=== PATIENT | male | born 1940 | race Caucasian/White ===

== ENCOUNTER 2020-02-24 11:27 | Emergency (ER) | payer OTHER | END 2020-02-24 12:08 | disposition home or self-care (01) | LOC: JVIRT 11:27 | DX: Z03.818 Encounter for observation for suspected exposure to other biological agents ruled out (principal) | CPT/HCPCS: C9803; G2012-GT; U0003 ==

== ENCOUNTER 2020-03-29 15:53 | Emergency (ER) | payer OTHER | END 2020-03-29 16:13 | disposition home or self-care (01) | LOC: JVIRT 15:53 | DX: R07.0 Pain in throat (principal); Z20.828 Contact with and (suspected) exposure to other viral communicable diseases | CPT/HCPCS: C9803; G2012-GT; Q3014-GT; U0003 ==

== ENCOUNTER 2021-04-16 12:30 | Emergency (ER) | payer OTHER ==
[2021-04-16] MEDS ORDERED: IBUPROFEN 400 MG TABLET (FP) PO ONE ×2 (12:52→13:07)
[2021-04-16 13:05] VITALS: BP 137/45; PULSE 58; TEMP 98.7; BMI 20.8
== END 2021-04-16 14:43 | disposition home or self-care (01) ==
LOC: FER 12:30
DX: M25.562 Pain in left knee (principal)
CPT/HCPCS: 73562-TC-LT-FY; 73590-TC-LT-FY; 99283-25

== ENCOUNTER → 2021-04-27 | Day surgery (SDC) | payer OTHER ==
[~2021-04-27] MED LIST: ACETAMINOPHEN 1000 MG/100 ML BAG IVPB ONE; BUPIVACAINE HCL/PF 2.5 MG/ML - 30 ML VIAL IJ ONE; BUPIVACAINE LIPOSOME/PF (EXPAREL) 266 MG/20 ML VIAL ONE; DEXAMETHASONE SOD PHOSPHATE 4 MG/1 ML VIAL ONE; LACTATED RINGERS SOLUTION 1,000 ML IV SCH; MIDAZOLAM HCL 2 MG/2 ML SINGLE DOSE VIAL ONE; ONDANSETRON 4 MG/2 ML VIAL IVPUSH PRN; PROPOFOL 20 ML ONE; ceFAZolin SODIUM 1 GM VIAL ONE; oxyCODONE HCL 5 MG TABLET ONE; oxyCODONE HCL 5 MG TABLET PO PRN
[2021-04-27 11:23] VITALS: BMI 20.8
[2021-04-27 16:26] VITALS: TEMP 98
[2021-04-27 18:22] VITALS: PULSE 54
[2021-04-27 18:24] VITALS: BP 131/57
== END | disposition home or self-care (01) ==
LOC: FASU 10:38
PROVIDERS: ATTEND Orthopaedic Surgery Sports Medicine
PROC: 0LMM0ZZ Reattachment of Left Upper Leg Tendon, Open Approach (ICD-10-PCS; principal; 2021-04-27 13:30)
DX: S76.112A Strain of left quadriceps muscle, fascia and tendon, initial encounter (principal); W19.XXXA Unspecified fall, initial encounter; Y93.9 Activity, unspecified; Y92.9 Unspecified place or not applicable
CPT/HCPCS: 94760